=== PATIENT | male | born 1950 | race African-American/Black ===

== ENCOUNTER 2017-09-11 15:49 | Emergency (ER) | payer MEDICARE, MEDICAID ==
[~2017-09-11] VITALS: Ht 185.4 cm; Wt 91.0 kg
[2017-09-11 16:45] LABS: CHLORIDE 110 mEq/L (98-107); INR 1.2; PROTHROMBIN TIME 12.3 sec (9.4-11.6)
[2017-09-11 16:48] LABS: HEMATOCRIT. 41.5 % (42.0-52.0); HEMOGLOBIN. 14.1 g/dL (14.0-18.0); LYMPHOCYTES % 36.8 % (20.0-50.0); MEAN CORPUSCULAR HEMOGLOBIN 31.4 pg (28.0-32.0); MEAN CORPUSCULAR VOLUME 92.8 fL (80.0-94.0); MEAN PLATELET VOLUME 7.6 fl (7.4-10.4); MONOCYTES % 10.4 % (2.0-8.0); NEUTROPHILS % 50.8 % (40.0-76.0); PLATELET 203 x1000/uL (130-400); RED BLOOD CELL COUNT 4.48 mill/uL (4.7-6.1); RED CELL DISTRIBUTION WIDTH 15.2 % (11.6-14.6)
[2017-09-11 18:23] VITALS: BP 149/95
== END 2017-09-11 18:28 | disposition left against medical advice (07) ==
LOC: ER 18:06
DX: I10 Essential (primary) hypertension (principal); R07.9 Chest pain, unspecified; F17.200 Nicotine dependence, unspecified, uncomplicated; F12.10 Cannabis abuse, uncomplicated; R42 Dizziness and giddiness; R79.1 Abnormal coagulation profile; Z88.0 Allergy status to penicillin; R06.02 Shortness of breath
CPT/HCPCS: 36415; 71045; 80053; 83880; 84484; 85025; 85610; 93005; 99285

== ENCOUNTER 2022-09-17 13:44 | Emergency (ER) | payer MEDICARE, MEDICAID ==
[~2022-09-17] VITALS: Ht 185.4 cm; Wt 91.0 kg
[2022-09-17 13:54] VITALS: BP 145/103
[2022-09-17] MEDS ORDERED: KETOROLAC 60MG/2ML VIAL IM STA (14:53)
== END 2022-09-17 16:44 | disposition home or self-care (01) ==
LOC: ER 13:44
DX: M19.011 Primary osteoarthritis, right shoulder (principal); F12.10 Cannabis abuse, uncomplicated; I10 Essential (primary) hypertension; Z88.0 Allergy status to penicillin; Z98.890 Other specified postprocedural states
CPT/HCPCS: 73030; 96372; 99283; J1885

== ENCOUNTER 2024-08-30 14:28 | Emergency (ER) | payer MEDICARE, MEDICAID ==
[~2024-08-30] VITALS: Ht 185.4 cm; Wt 83.0 kg
[~2024-08-30 14:28] MED LIST: LEVE500T19 PO; LISI20TA31 MT
[2024-08-30 14:49] VITALS: O2SAT 97
[2024-08-30] MEDS ORDERED: ONDANSETRON HCL 4MG/2ML INJ IV ONE (17:30)
[2024-08-30] MEDS ORDERED: MORPHINE SULFATE 4 MG/ML INJ (FOR IV/IM USE) IV ONE (17:30)
[2024-08-30 18:24] LABS: BASOPHILS % 0.3 % (0.0-2.0); HEMATOCRIT. 42.7 % (42.0-52.0); HEMOGLOBIN. 13.8 g/dL (14.0-18.0); LYMPHOCYTES % 17.2 % (20.0-50.0); MEAN CORPUSCULAR HEMOGLOBIN 29.1 pg (28.0-32.0); MEAN CORPUSCULAR HGB CONC 32.4 g/dL (31.0-37.0); MEAN CORPUSCULAR VOLUME 89.8 fL (80.0-94.0); MEAN PLATELET VOLUME 7.4 fl (7.4-10.4); MONOCYTES % 6.9 % (2.0-8.0); NEUTROPHILS % 75.6 % (40.0-76.0); PLATELET 190 x1000/uL (130-400); RED BLOOD CELL COUNT 4.76 mill/uL (4.7-6.1); RED CELL DISTRIBUTION WIDTH 14.8 % (11.6-14.6); WHITE BLOOD COUNT 9.3 x1000/uL (4.5-11.0)
[2024-08-30 18:30] LABS: CHLORIDE 103 mEq/L (98-107); SODIUM 138 mEq/L (136-145)
[2024-08-30 18:31] LABS: CALCIUM 9.5 mg/dL (8.7-10.4); CARBON DIOXIDE 27 mEq/L (21-32)
[2024-08-30 18:32] LABS: INR 1.1; PROTHROMBIN TIME 11.6 sec (9.6-11.0)
[2024-08-30 18:36] LABS: CREATININE 1.4 mg/dL (0.6-1.3); GLUCOSE 92 mg/dL (70-105); UREA NITROGEN BLOOD 11 mg/dL (9-23)
[2024-08-30 18:37] LABS: TROPONIN I HIGH SENSITIVITY 42 ng/L (3.0-53)
[2024-08-30] MEDS: MORPHINE SULFATE 4 MG/ML INJ (FOR IV/IM USE) IV NR (19:16)
[2024-08-30] MEDS: ONDANSETRON HCL 4MG/2ML INJ IV NR (19:16)
[2024-08-30] MEDS ORDERED: METH-653 MT (20:22)
[2024-08-30] MEDS ORDERED: LIDO700A15 TP (20:22)
[2024-08-30] MEDS ORDERED: TOPUD PO (20:22)
[2024-08-30 20:51] VITALS: BP 143/83; PULSE 90; RESP 18; TEMP 36.4; O2SAT 98
[2024-08-30] MEDS: KETOROLAC 15MG/ML VIAL IV ONE (20:51)
[2024-08-30] MEDS ORDERED: IOHEXOL-300 100 ML BOTTLE ONE (23:51)
== END 2024-08-30 20:53 | disposition home or self-care (01) ==
LOC: ER 14:28
DX: S29.011A Strain of muscle and tendon of front wall of thorax, initial encounter (principal); F12.90 Cannabis use, unspecified, uncomplicated; E78.00 Pure hypercholesterolemia, unspecified; I10 Essential (primary) hypertension; R51.9 Headache, unspecified; Z88.0 Allergy status to penicillin; Z86.73 Personal history of transient ischemic attack (TIA), and cerebral infarction without residual deficits; Z79.899 Other long term (current) drug therapy; X58.XXXA Exposure to other specified factors, initial encounter; Y93.89 Activity, other specified; Y92.89 Other specified places as the place of occurrence of the external cause; Y99.8 Other external cause status
CPT/HCPCS: 99285; 70450; 96374; 96375; 71045; 80048; 83880; 85025; 85610; 86850; 86900; 86901; 84484; 36415; 71260; 74177; 93005; J1885; Q9967; J2405; J2270